=== PATIENT | male | born 2000 | race Caucasian/White ===

== ENCOUNTER 2018-11-17 16:23 | Emergency (ER) | payer OTHER ==
--- NOTE | 2018-11-17 16:36 | ED Physician Documentation ---
Sore Throat/Dental Pain - HISTORIAN Historian: patient - HPI Stated Complaint: sore throat Chief Complaint: Sore Throat Additional Information: Patient presents to ED with a 1 week history of sore throat, nasal congestion and today left ear pain. He denies shortness of breath but does admit to some chills. Onset: days ago (7) Associated Symptoms: chills, sore throat, L ear pain Worsened By: nothing - ROS CONST: no problems CVS/RESP: denies: chest pain, shortness of breath GI/: denies: nausea, vomiting MS/SKIN/LYMPH: denies: muscle aches NEURO/PSYCH: denies: headache - PAST HX Past History: none Other History: none Allergies/Adverse Reactions: Allergies Allergy/AdvReac Type Severity Reaction Status Date / Time No Known Allergies Allergy Verified 11/17/18 16:35 Home Medications: Ambulatory Orders Medication Instructions Recorded Amoxicillin/Potassium Clav 1 each PO BID #20 tablet 11/17/18 [Augmentin 875-125 Tablet] Lisinopril [Zestril] 20 mg PO DAILY 11/17/18 Metformin HCl [Glucophage] 1,000 mg PO DAILY 11/17/18 Trazodone HCl 50 mg PO DAILY 11/17/18 - SOCIAL HX Smoking History: non-smoker Alcohol Use: none Drug Use: none - FAMILY HX Family History: No - VITAL SIGNS Vital Signs: Vital Signs Temp Pulse Resp BP Pulse Ox 96.5 F L 114 H 19 140/100 95 11/17/18 16:30 11/17/18 16:30 11/17/18 16:30 11/17/18 16:30 11/17/18 16:30 - REVIEWED ASSESSMENTS Nursing Assessment Reviewed: Yes Vitals Reviewed: Yes ED Results Lab/Radiology - Orders Orders: ED Orders Category Date Time Status Rapid Strep [GRP A STREP SCREEN] Stat Lab 11/17/18 Stop Req Sore throat Physical Exam - EXAM General Appearance: no acute distress, alert Head/Neck: head nml inspection Eyes: PERRL Mouth/Throat: other (posterior pharynx erythema) Ear/Nose: TM erythema (left) Respiratory: no resp. distress, breath sounds nml CVS: reg. rate & rhythm, heart sounds nml Abdomen: soft Extremities: non-tender Skin: warm/dry Neuro/Psych: oriented x3 Discharge Clincal Impression: Left otitis media Qualifiers: Otitis media type: unspecified Qualified Code(s): H66.92 - Otitis media, unspecified, left ear Prescriptions: Amoxicillin/Potassium Clav [Augmentin 875-125 Tablet] 1 each PO BID #20 tablet Referrals: Primary Doctor,No [Primary Care Provider] - 2 Days Additional Instructions: 1. Take antibiotics until gone 2. Tylenol and/or Ibuprofen as needed for pain/fever 3. Follow up with PCP within 1 week 4. Return to ER for new or worsening symptoms Condition: Stable Disposition: 01 HOME, SELF-CARE Decision to Admit: NO Date of Decison to Admit: 11/17/18 Decision Time: 16:41
[2018-11-17 16:37] VITALS: BP 140/100
== END 2018-11-17 16:48 | disposition home or self-care (01) ==
LOC: ED 16:23
DX: H66.92 Otitis media, unspecified, left ear (principal)
CPT/HCPCS: 99282; 99283